=== PATIENT | female | born 2005 | race Hispanic/Latino ===

== ENCOUNTER 2024-03-20 17:45 | Emergency (ER) | payer SELFPAY ==
[~2024-03-20] VITALS: Ht 149.9 cm; Wt 81.6 kg
[2024-03-20 18:46] LABS: BASOPHILS # (AUTO) 0.02 K/uL (0.00-0.20); BASOPHILS % (AUTO) 0.3 % (0.0-5.0); EOSINOPHILS # (AUTO) 0.02 K/uL (0.00-0.70); EOSINOPHILS % (AUTO) 0.3 % (0.0-8.0); HEMATOCRIT 38.3 % (36-48); IMMATURE GRANULOCYTE ABSOLUTE 0.02 K/uL (0-1); LYMPHOCYTES % (AUTO) 28.4 % (21.0-51.0); MEAN CORPUSCULAR HGB CONC 33.2 g/dL (32.0-36.0); MEAN CORPUSCULAR VOLUME 90.5 fL (80-100); MONOCYTES # (AUTO) 0.5 K/uL (0.1-1.0); MONOCYTES % (AUTO) 7.6 % (3.0-13.0); NEUTROPHILS # (AUTO) 4.3 K/uL (1.8-7.7); NEUTROPHILS % (AUTO) 63.1 % (40.0-77.0); PLATELET COUNT (AUTO) 276 K/uL (130-400); RED BLOOD CELL COUNT(AUTO) 4.23 MIL/uL (4.00-5.50); RED CELL DISTRIBUTION WIDTH 13.1 % (11.0-15.5); WHITE BLOOD COUNT (AUTO) 6.9 K/uL (4.8-10.8)
--- NOTE | 2024-03-20 18:53 | ERN ---
ED Note History of Present Illness Stated Complaint: RIGHT ARM BRUISE Chief Complaint: Bloody Stool Time Seen by MD: 17:47 Time Seen by Midlevel: 17:47 Dictation: Patient is a 18-year-old female with no past medical history who presents to the emergency department with complaints of four days of bright and dark red stools. Patient also reports some nausea but no vomiting. some lower abd pain. Reports migraine headache two days ago. Denies any trauma. Patient reports she was seen at [facility] yesterday and had labs and a CT scan and was diagnosed with constipation.Denies any use of blood thinners. Allergies: Coded Allergies: No Known Drug Allergies (Unverified Allergy, Unknown, 03/20/24) Past Medical History Past Medical History: No Pertinent History Surgical History: None RN Note Reviewed/Agreed w/PFSH: Yes Review of System Dictation Constitutional: Negative for fever,chills, and weight loss Eyes: Negative for injury, pain,redness, and discharge ENT: Negative for injury,pain or swelling Cardiovascular: Negative for chest pain, palpitations, and edema Respiratory: Negative for shortness of breath, cough, and wheezing, Abdomen/GI: Negative for diarrhea, and constipation positive for abdominal pain, nausea, vomiting, positive for bloody stools Back: Negative for injury and pain : Negative for injury, bleeding and discharge MS/Extremity: Negative for injury and deformity Skin: Negative for rash, and discoloration Neuro: Negative for weakness, numbness, tingling, and seizure positive for headache Psych: Negative for suicide ideation, homicidal ideation, and hallucinations Initial Vital Sign VS Vital Signs Date Time Temp Pulse Resp B/P (MAP) Pulse Ox O2 Delivery O2 Flow Rate FiO2 03/20/24 17:55 97.9 92 20 113/78 98 Room Air 0 Physical Exam Dictation Vital Signs reviewed General Appearance: Alert, oriented x 3, no acute distress, well developed, nourished. Head and Face: non-traumatic. Eyes: PERRL, pink conjunctivas, eyelid no trauma, anterior chamber with arcus senilis. Ears: Pinnas intact and no signs of trauma or erythema ear canals clear and no discharge TM no erythema Nose: No discharge, no bleeding. Oropharynx: Mouth normal, tongue pink. pharynx clear,no erythema, tonsils no exudates, no abscesses noted, mucous membrane moist Neck: Supple, non-tender, no thyromegaly, no masses, no JVD, no bruits Breast:Deferred Chest:No tenderness, no crepitus, no paradoxical movement, no retractions Lungs:Clear, well-ventilated, symmetric, no rales, no wheezing, no rhonchi, no stridor, good breath sounds bilaterally Heart: Regular rate, regular rhythm, no murmur, no gallops Vascular: no peripheral edema, Abdomen: Soft, positive bowel sounds, nondistended, no guarding, nontender, no rebound, no masses no hepatomegaly, no splenomegaly, no Smith's sign, no hernias. Rectal: No hemorrhoids or obvious bleeding. Genital: Deferred Neurological: Normal speech, motor function intact, sensory function intact , no slurred speech, upper extremities equal and strength, lower extremities equal and strength Musculoskeletal: Neck nontender, full range of motion, back nontender, full range of motion, Extremities: nontender, full range of motion Skin: Color pink, dry, no turgor, no rash, no lacerations, no abrasions, no contusions. Lymphatic: Deferred Results (Laboratory/Radiology) Laboratory/Radiology Laboratory Tests Test 03/20/24 18:30 03/20/24 20:41 White Blood Count 6.9 K/uL (4.8-10.8) Red Blood Count 4.23 MIL/uL (4.00-5.50) Hemoglobin 12.7 g/dL (12.0-16.0) Hematocrit 38.3 % (36-48) Mean Corpuscular Volume 90.5 fL (80-100) Mean Corpuscular Hemoglobin 30.0 pg (27.0-33.0) Mean Corpuscular Hemoglobin Concent 33.2 g/dL (32.0-36.0) Red Cell Distribution Width 13.1 % (11.0-15.5) Platelet Count 276 K/uL (130-400) Mean Platelet Volume 9.1 fL (7.5-10.5) Immature Granulocyte % (Auto) 0.3 % (0-1) Neutrophils (%) (Auto) 63.1 % (40.0-77.0) Lymphocytes (%) (Auto) 28.4 % (21.0-51.0) Monocytes (%) (Auto) 7.6 % (3.0-13.0) Eosinophils (%) (Auto) 0.3 % (0.0-8.0) Basophils (%) (Auto) 0.3 % (0.0-5.0) Neutrophils # (Auto) 4.3 K/uL (1.8-7.7) Lymphocytes # (Auto) 2.0 K/uL (1.0-4.8) Monocytes # (Auto) 0.5 K/uL (0.1-1.0) Eosinophils # (Auto) 0.02 K/uL (0.00-0.70) Basophils # (Auto) 0.02 K/uL (0.00-0.20) Absolute Immature Granulocyte (auto 0.02 K/uL (0-1) Nucleated Red Blood Cells 0.0 % (0.0-0.19) Prothrombin Time 10.8 SEC (9.6-11.6) Prothromb Time International Ratio 0.96 (0.85-1.15) Activated Partial Thromboplast Time 24.6 SEC (26.3-35.5) L Sodium Level 139 mmol/L (136-145) Potassium Level 3.7 mmol/L (3.5-5.1) Chloride Level 103 mmol/L (101-111) Carbon Dioxide Level 27 mmol/L (21-32) Blood Urea Nitrogen 5 mg/dL (7-18) L Creatinine 0.5 mg/dL (0.5-1.0) Glomerular Filtration Rate Calc 138 mL/min (>90) Random Glucose 109 mg/dL (70-105) H Total Calcium 8.7 mg/dL (8.5-10.1) Total Bilirubin 0.3 mg/dL (0.2-1.0) Direct Bilirubin 0.1 mg/dL (0.0-0.3) Aspartate Amino Transf (AST/SGOT) 15 U/L (10-37) Alanine Aminotransferase (ALT/SGPT) 19 U/L (12-78) Alkaline Phosphatase 133 U/L (50-136) Total Protein 7.9 g/dL (6.0-8.3) Albumin 3.7 g/dL (3.5-5.0) Lipase 25 U/L (16-77) Stool Occult Blood POSITIVE (NEGATIVE) H Labs Reviewed?: Yes ED Course ED Course Orders Procedure Category Date Status Time Cbc With Differential LAB 2/11/25 Complete 18:06 ,Urine Test LAB 03/20/24 Logged 18:06 Urinalysis Profile LAB 03/20/24 Logged 18:06 0.9%Nacl 1000ml (Ns PHA 03/20/24 Complete 1000ml) 18:30 Ondansetron 4mg Inj PHA 03/20/24 Complete (Zofran 4mg Inj) 18:30 Basic Metabolic Panel LAB 03/20/24 Complete 18:06 Hepatic Function Panel LAB 03/20/24 Complete 18:06 Lipase LAB 03/20/24 Complete 18:06 Acetaminophen 500mg PHA 03/20/24 Complete Tab (Tylenol 500mg T 18:30 Pt And Ptt LAB 03/20/24 Complete 18:52 Occult Blood Stool LAB 03/20/24 Complete Single Only 20:08 Pantoprazole 40mg Inj PHA 03/20/24 In Process (Protonix 40mg Inj 22:30 Current Medications Medications (Trade) Dose Ordered Sig/Zoltan Route PRN Reason Start Time Stop Time Status Last Admin Dose Admin Acetaminophen (TYLenol 500MG TAB) 1,000 mg ONCE ONCE PO 03/20/24 18:30 03/20/24 18:31 DC Ondansetron HCl (zoFRAN 4MG INJ) 4 mg ONCE ONCE IVP 03/20/24 18:30 03/20/24 18:31 DC Pantoprazole Sodium (PROTonix 40MG INJ) 40 mg ONCE ONCE IVP 03/20/24 22:30 03/20/24 22:31 Sodium Chloride 1,000 ml @ 0 mls/hr ONCE ONCE IV 03/20/24 18:30 03/20/24 18:31 DC Vital Signs Date Time Temp Pulse Resp B/P (MAP) Pulse Ox O2 Delivery O2 Flow Rate FiO2 03/20/24 17:55 97.9 92 20 113/78 98 Room Air 0 Medical Decision Making MDM Patient is a 18-year-old female with no past medical history who presents to the emergency department with complaints of four days of bright and dark red stools. Patient also reports some nausea but no vomiting. some lower abd pain. Reports migraine headache two days ago. Denies any trauma. Patient reports she was seen at [facility] yesterday and had labs and a CT scan and was diagnosed with constipation.Denies any use of blood thinners. CBC showed no leukocytosis, no anemia, normal platelets, chemistry showed no electrolyte imbalance, normal renal function, negative lipase, normal liver enzymes, coagulation unremarkable, fecal occult positive. Patient continues in no acute distress, hemodynamically stable, normal H&H. 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 Patient neurologically intact. Patient instructed to follow up with GI Differential diagnosis: GI bleed, gastroenteritis, dehydration, anemia Need for hospitalization: Patient does not meet criteria for hospitalization. There are no social concerns with this patient. DX & DISP Disposition: Discharge Departure Impression: Primary Impression: Bloody stool Additional Impression: Headache Condition: Stable Scripts Pantoprazole Sodium (Pantoprazole Sodium) 20 Mg Tablet.dr 1 TAB PO DAILY for 30 Days, #30 TAB 0 Refills Prov: ESTELLA LEE 03/20/24 Additional Instructions: Please follow up with PCP in 1-2 days. Follow up with GI for further evaluation. Please return to ER if symptoms worsen. FOLLOW-UP WITH PRIMARY CARE PROVIDER IN 1 TO 2 DAYS. TAKE MEDICATIONS DIRECTED HERE IN THE EMERGENCY ROOM. OKAY TO CONTINUE HOME MEDICATIONS UNLESS OTHERWISE DISCUSSED DURING YOUR VISIT IN THE EMERGENCY ROOM TODAY. RETURN TO YOUR NEAREST EMERGENCY ROOM IF SYMPTOMS WORSEN OR IF THERE IS NO IMPROVEMENT. CALL 911 IF YOU NEED IMMEDIATE ASSISTANCE. TAKE TYLENOL OR MOTRIN [id number] NEEDED AND IF NO CONTRAINDICATIONS ARE PRESENT. INCREASE ORAL HYDRATION. A WOUND CULTURE OR URINE CULTURE WAS ORDERED HERE IN THE EMERGENCY ROOM DEPARTMENT PLEASE FOLLOW-UP WITH PRIMARY CARE PROVIDER AND ADVISE THEM TO GET REPEAT PORTS FROM OUR FACILITY. IF YOU HAD ANY NIKKY WRAP/SPLINTS THAT WERE APPLIED HERE, PLEASE DO NOT REMOVE THEM UNTIL YOU SEE YOUR PRIMARY CARE OR SPECIALTY. Referrals: SELF,REFERRAL (PCP) Time of Disposition: 22:06 I have reviewed the case, and I agree with, Diagnosis and Plan ESTELLA LEE Mar 20, 2024 18:53
[2024-03-20 18:56] LABS: CREATININE 0.5 mg/dL (0.5-1.0); POTASSIUM 3.7 mmol/L (3.5-5.1)
[2024-03-20 19:05] LABS: ALBUMIN 3.7 g/dL (3.5-5.0); BILIRUBIN,DIRECT 0.1 mg/dL (0.0-0.3); BILIRUBIN,TOTAL 0.3 mg/dL (0.2-1.0); TOTAL PROTEIN, SERUM 7.9 g/dL (6.0-8.3)
[2024-03-20 19:50] LABS: INR 0.96 (0.85-1.15); PROTHROMBIN TIME 10.8 SEC (9.6-11.6)
[2024-03-20 19:51] LABS: PARTIAL THROMBOPLASTIN TIME 24.6 SEC (26.3-35.5)
--- NOTE | 2024-03-20 21:40 | NUR ---
ASSUMED PT CARE
[2024-03-20] MEDS ORDERED: PANT20TA18 PO (22:19)
[2024-03-20] MEDS: acetaMINOPHEN 500 MG TABLET PO ONE (22:31)
[2024-03-20] MEDS: PANTOPrazole 40 MG/VIAL IVP ONE (22:31)
[2024-03-20] MEDS: ondanSETRON 4MG INJ IVP ONE (22:32)
[2024-03-20] MEDS: 0.9%NACL 1000ML 1,000 ML IV ONE (22:32)
[2024-03-20 22:59] LABS: APPEARANCE,URINE CLEAR (CLEAR); BILIRUBIN,URINE NEGATIVE (NEGATIVE); COLOR,URINE LIGHT-YELLOW (YELLOW); GLUCOSE, URINE (UA) NEGATIVE (NEGATIVE); KETONES,URINE NEGATIVE (NEGATIVE); LEUKOCYTE ESTERASE ,URINE NEGATIVE Leu/uL (NEGATIVE); NITRATE,URINE NEGATIVE (NEGATIVE); OCCULT BLOOD,URINE NEGATIVE (NEGATIVE); PROTEIN,URINE NEGATIVE (NEGATIVE); UROBILINOGEN,URINE 0.2 mg/dL (0.2-1.0)
[2024-03-20 23:04] LABS: ADD UA MICROSCOPIC NO
[2024-03-20 23:13] LABS: HCG,QUALITATIVE URINE NEGATIVE (NEGATIVE)
[2024-03-20 23:34] VITALS: BP 132/66; PULSE 77; RESP 18; TEMP 98.7; O2SAT 99
== END 2024-03-20 23:38 | disposition home or self-care (01) ==
LOC: EDH 17:45
DX: K92.1 Melena (principal); R51.9 Headache, unspecified
CPT/HCPCS: 99284; 96374; 96375; 82270; 80076; 80048; 83690; 85025; 85610; 85730; 81003; 81025; 36415; J7030; J2405; J2470